=== PATIENT | female | born 1950 | race Hispanic/Latino ===

== ENCOUNTER → 2022-04-12 | Outpatient (CLI) | payer MEDICARE | END | disposition home or self-care (01) | LOC: RAH 09:27 | PROVIDERS: ATTEND Urology | DX: N20.0 Calculus of kidney (principal); M47.815 Spondylosis without myelopathy or radiculopathy, thoracolumbar region | CPT/HCPCS: 74018; 76100 ==

== ENCOUNTER → 2023-05-20 | Outpatient (CLI) | payer OTHER | END | disposition home or self-care (01) | LOC: RAH 15:00 | PROVIDERS: ATTEND Urology | DX: N20.0 Calculus of kidney (principal); M47.815 Spondylosis without myelopathy or radiculopathy, thoracolumbar region | CPT/HCPCS: 74018; 76100 ==